=== PATIENT | female | born 1950 | race Caucasian/White ===

== ENCOUNTER → 2024-07-17 06:14 | Day surgery (SDC) | payer MEDICARE, OTHER, SELFPAY | LOC: GI 06:14 | PROVIDERS: ATTENDING PHYSICIAN Internal Medicine Gastroenterology | DX: D12.1 Benign neoplasm of appendix (principal); D12.3 Benign neoplasm of transverse colon; K57.30 Diverticulosis of large intestine without perforation or abscess without bleeding; K64.8 Other hemorrhoids | CPT/HCPCS: 45380; 88305 ==

== ENCOUNTER 2024-10-16 06:12 | Day surgery (SDC) | payer MEDICARE, OTHER, SELFPAY ==
[2024-10-16 12:15] VITALS: BMI 29.3
[2024-10-16 12:25] VITALS: BP 146/85
[2024-10-16 12:53] VITALS: BMI 29.3
[2024-10-16 15:35] VITALS: BP 121/69
[2024-10-16 15:46] VITALS: BP 149/76
[2024-10-16 16:00] VITALS: BP 150/79
== END 2024-10-16 16:05 | disposition home or self-care (01) ==
LOC: SDS 06:12
PROVIDERS: ATTENDING PHYSICIAN Internal Medicine Gastroenterology
DX: D12.0 Benign neoplasm of cecum (principal); D12.7 Benign neoplasm of rectosigmoid junction; K57.30 Diverticulosis of large intestine without perforation or abscess without bleeding; K64.0 First degree hemorrhoids
CPT/HCPCS: 45390; 45385; 88305

== ENCOUNTER → 2025-08-10 09:07 | Outpatient (REF) | payer MEDICARE, OTHER, SELFPAY | LOC: MRI 3T 09:07 | PROVIDERS: ATTENDING PHYSICIAN Orthopaedic Surgery; FAMILY PHYSICIAN Family Medicine Sports Medicine | DX: M75.41 Impingement syndrome of right shoulder (principal) | CPT/HCPCS: 73221 ==